=== PATIENT | female | born 1970 | race Caucasian/White ===

== ENCOUNTER 2017-11-29 11:43 | Emergency (ER) | payer OTHER ==
[~2017-11-29] VITALS: Ht 154.9 cm; Wt 79.4 kg
[2017-11-29 11:45] VITALS: BP 123/61
--- NOTE | 2017-11-29 11:50 | NUR ---
PT AMBULATED TO ER CHAIR C
--- NOTE | 2017-11-29 11:55 | NUR ---
47F BIB SELF WITH C/O 8/10 PLANTAR FOOT PAIN X 1 MONTH. BURNING IN SENSATION. DENIES INJURY. PT STS SHE NOTICED SWELLING THIS AM. PT STS SHE BELIEVES SWELLING IS DUE TO "WALKING A LOT"; CMS INTACT TO BL LE. PT IS AOX4 WITH STEADY GAIT. RR ARE EVEN AND UNLABORED. NAD. AWAITING ER MD STEINER. ALL NEEDS MET AT THIS TIME.
--- NOTE | 2017-11-29 12:26 | NUR ---
PT TAKEN TO XRAY VIA W/C ACCOMPANIED BY SPA ASSISTANT MANAGER
[2017-11-29 13:06] VITALS: BP 132/80
== END 2017-11-29 13:06 | disposition home or self-care (01) ==
LOC: MED 11:43
DX: M72.2 Plantar fascial fibromatosis (principal)
CPT/HCPCS: 73620; 99284